=== PATIENT | male | born 1960 | race Caucasian/White ===

== ENCOUNTER → 2022-09-26 | Outpatient (CLI) | payer MEDICARE ==
--- NOTE | 2022-09-27 04:20 | MR ---
EXAMINATION TYPE: MR femur/thigh RT wo con DATE OF EXAM: 09/26/2022 COMPARISON: None HISTORY: Posterior rt upper leg swelling Multiplanar multi echo imaging of both femurs performed without contrast. On the STIR images there is abnormal increased fluid signal in the soft tissues posterior to the mid and distal shaft of the right femur. On the T1 images there is mixed signal in this area laterally wi th a ring of decreased signal that could be hemosiderin. Abnormality measures 5.6 x 2.8 cm.. There is small area of similar mixed signal in the medial aspect of the biceps femoris muscle. This is consis tent with intramuscular hematoma in the biceps femoris muscle. The femurs are intact. No evidence of femoral fracture. The hip joints are intact. No focal bone dest ruction. The acetabula appear intact. Anterior muscles of the thigh appear intact. IMPRESSION: Mixed signal in the medial and lateral biceps femoris muscle bundles of the lower thigh of the right leg consistent with edema and intramuscular hematoma. No fracture.
== END | disposition home or self-care (01) ==
LOC: RADMRIMAIN 07:08
PROVIDERS: ATTEND Psychiatry & Neurology Neurology
DX: M54.31 Sciatica, right side (principal)